=== PATIENT | male | born 1950 | race Asian ===

== ENCOUNTER → 2016-12-16 | Day surgery (SDC) | payer MEDICAID ==
[~2016-12-16] VITALS: Ht 165.1 cm; Wt 70.5 kg
[2016-12-16] VITALS (7 sets, daily range): BP systolic 116–133; BP diastolic 63–93; PULSE 75–91; RESP 14–18; O2SAT 93–100
[~2016-12-16] MED LIST: CALC667C9 PO; Heparin 1,000 Unit/mL 10 mL Inj ONE; Heparin 10,000 Unit/1,000 mL NS Premix IV ONE; MTC5T PO; ZYL100 PO; fentaNYL-PF 50 mCg/mL 2 mL Inj ONE
[2016-12-16 11:26] LABS: BASOPHILS % (AUTO) 0.5 % (0-3); EOSINOPHILS % (AUTO) 26.2 % (0-5); MONOCYTES % (AUTO) 5.4 % (4-12); Mean Corpuscular Hemoglobin 31.9 pg (27.0-35.0); Mean Corpuscular Volume 93.2 fL (81-100); Platelet Count 215 bil/L (150-400)
[2016-12-16 11:42] LABS: INR 0.88 ratio
--- NOTE | 2016-12-16 13:11 | NUR ---
GRACY Admit to [facility] bed 3 at 1100. Family and inspector water pollution control at bedside. Patient denies pain. HL placed and labs drawn. Consent obtained pr . History and medications reviewed. Pre-procedure teaching done and questions answered.
--- NOTE | 2016-12-16 13:25 | DRSVH ---
PROCEDURE: CV TUNNEL CATH PLCMNT 1. Sonographic guidance for venous access. 2. Conscious sedation for 30 minutes. 3. Right internal jugular vein tunneled hemodialysis catheter placement. 4. Fluoroscopic guidance for catheter placement. INDICATIONS: End-stage renal disease TECHNIQUE: The indications, alternatives, benefits, risks, and complications of the procedure were e xplained to the patient and any family members present. Informed written consent was obtained and pl aced in the chart. The patient was brought to the angiography suite, and conscious sedation was admi nistered intravenously by longterm staff, while continuous cardiorespiratory monitoring was pe rformed. Maximum sterile barrier technique was employed per standard protocol, including hand hygiene, cap, ma sk, sterile gown and gloves, and 2% chlorhexidine. Sterile ultrasound probe cover was also utilized. 1% lidocaine was used for local anaesthesia. Under sonographic guidance, the right internal jugular vein was accessed with a Micropuncture set. An 0.035J wire was advanced into the vena cava. Subcuta neous tunnel was created within the right anterior chest wall, through which a 14.5 [place] double lum en tunneled hemodialysis catheter was advanced. Following sequential venotomy tract dilation, the ca theter was advanced through the peel-away sheath and the tip was placed at the cavoatrial junction. Peel-away sheath was removed. Adequate flow was obtained through both lumens of the catheter. The v enotomy was closed with Dermabond, and the catheter was fastened to the skin with Ticron. Both lumen s were flushed with heparinized saline. The patient tolerated the procedure without difficulty and was in stable condition at the conclusion of the procedure. COMPARISON: None. FINDINGS: The right internal jugular vein is patent by ultrasound. Fluoroscopic imaging demonstrates tip of th e catheter at the cavoatrial junction. IMPRESSION: Right internal jugular vein tunneled hemodialysis catheter placement using sonographic and fluoroscop ic guidance. Dictated by: Dominique Etienne M.D. on 12/16/2016 at 13:22 Approved by: Dominique Etienne M.D. on 12/16/2016 at 13:24
--- NOTE | 2016-12-16 16:11 | DRSVH ---
PROCEDURE: X-RAY CHEST, TWO VIEWS ([id number]) INDICATIONS: END STAGE RENAL DISEASE TECHNIQUE: 2 views of the chest were acquired. COMPARISON: None. FINDINGS: Surgical changes and devices: None. Lungs and pleura: No pleural effusions or pneumothorax. Lungs are clear. Mediastinum: Mediastinal contours are normal. Heart size is normal. Bones and chest wall: No suspicious bony abnormalities. Soft tissues appear unremarkable. IMPRESSION: No active pulmonary tuberculosis identified radiographically. Dictated by: Iban Kyle Marianna Interpreted: Jenaro Fairchild MD on 12/16/2016 at 12:27 Approved by: Jeff Fairchild M.D. on 12/16/2016 at 16:07
== END | disposition home or self-care (01) ==
LOC: SOUO 00:21
PROVIDERS: ATTEND Radiology Vascular & Interventional Radiology
DX: N18.6 End stage renal disease (principal); D63.1 Anemia in chronic kidney disease; M10.9 Gout, unspecified; N25.0 Renal osteodystrophy; I71.4 Abdominal aortic aneurysm, without rupture
CPT/HCPCS: 36415; 36558; 71020; 77001; 80048; 85025; 85610; 86704; 86706; 87340; 99152; C1750; C1769; C1887; G0472; J1644; J2250; J3010